=== PATIENT | male | born 1955 | race Caucasian/White ===

== ENCOUNTER 2017-05-06 19:54 | Emergency (ER) | payer OTHER ==
[~2017-05-06] VITALS: Ht 177.8 cm; Wt 132.0 kg
[2017-05-06 19:56] VITALS: Ht 177.8 cm; Wt 132.0 kg
--- NOTE | 2017-05-06 21:37 | ERD ---
ER Documentation Chief Complaint Date/Time DATE: 05/06/17 TIME: 21:35 Chief Complaint pt bib family with c/o back pain , hard to sleep, sit, stand HPI 61-year-old male who presents emergency department for nontraumatic back pain that happened 36-48 hours ago. Patient also stated that he has a chronic back pain since 2002 secondary to injury to his back. Denies headache, dizziness, blurred vision, neck pain, shoulder pain, chest pain , abdominal pain, nausea, vomiting, urinary symptoms, constipation, diarrhea, loss of bowel and bowel control, numbness or tingling sensation, trauma, injury , falls, fever, chills. No known drug allergies. Past medical history of adult and juvenile ADHD, chronic back pain. Surgical history of cholecystectomy 5 years ago. Medication : Stated that he takes Motrin at home. Social: Not working at this time. Smokes cigarettes occasionally. Occasional drinks alcoholic beverages. Patient admits that he occasionally uses speed. ROS All systems reviewed and are negative except as per history of present illness. Medications Home Meds Active Scripts Tramadol HCl (Tramadol HCl) 50 Mg Tablet, 50 MG PO Q4 Y for PAIN, #15 TAB Prov:ISABELAERICNGHIAAR F 05/06/17 Cyclobenzaprine Hcl* (Cyclobenzaprine Hcl*) 10 Mg Tablet, 10 MG PO Q12, #15 TAB Prov:DAVID VILLELA F 05/06/17 Allergies Allergies: Coded Allergies: No Known Allergy (Unverified , 05/06/17) Physical Exam Vitals Vital Signs Date Time Temp Pulse Resp B/P Pulse Ox O2 Delivery O2 Flow Rate FiO2 05/06/17 23:45 98.0 85 20 140/83 95 Room Air 05/06/17 19:56 98.0 94 20 155/88 97 Physical Exam Const: [] Head: Atraumatic Eyes: Normal Conjunctiva. Extraocular movement of his eyes within normal limits. No pain in eye movement. No visual field loss. ENT: Normal External Ears, Nose and Mouth. Neck: Full range of motion..~ No meningismus. Resp: Clear to auscultation bilaterally Cardio: Regular rate and rhythm, no murmurs Abd: Soft, non tender, non distended. Normal bowel sounds Skin: No petechiae or rashes Back: No midline or flank tenderness Ext: No cyanosis, or edema. Right straight leg test was positive.C-spine/T- spine/L-spine is good and full range of motion with no deformity/bulging/ discoloration/swelling. No signs of saddle anesthesia. Good and full range of motion of neck and spine. Bilateral great toe has strong flexion and extension with a score of 5/5. Neur: Awake and alert Psych: Normal Mood and Affect Results 24 hrs Laboratory Tests Test 05/06/17 21:50 Urine Color YELLOW Urine Clarity CLEAR Urine pH 5.0 Urine Specific [place] 1.023 Urine Ketones NEGATIVEmg/dL Urine Nitrite NEGATIVEmg/dL Urine Bilirubin NEGATIVEmg/dL Urine Urobilinogen NEGATIVEmg/dL Urine Leukocyte Esterase TRACELeu/ul Urine Microscopic RBC 2/HPF Urine Microscopic WBC 6/HPF Urine Calcium Oxalate Crystals FEW/HPF Urine Mucus FEW/HPF Urine Hemoglobin 1+mg/dL Urine Glucose NEGATIVEmg/dL Urine Total Protein NEGATIVEmg/dl Urine Opiates Screen Negative Urine Barbiturates Negative Urine Amphetamines Screen Positive Urine Benzodiazepines Screen Negative Urine Cocaine Screen Negative Urine Cannabinoids Negative Current Medications Medications (Trade) Dose Ordered Sig/Toan Route PRN Reason Start Time Stop Time Status Last Admin Dose Admin Acetaminophen/ Hydrocodone Bitart ([place] (10/325)) 1 tab ONCE ONCE PO 05/06/17 22:00 05/06/17 22:01 DC 05/06/17 21:59 Procedures/MDM Examination: Please see physical examination. Disease process, medical treatment was explained to the patient and family member. They verbalized understanding and agreed with the diagnostic tests, medical treatment, and follow-up care. EKG: Normal sinus rhythm with a ventricular rate of 90 bpm. No evidence of acute myocardial infarction. No evidence of ischemia. Urinalysis: Negative for UTI. Positive for amphetamines. Treatment: [place]. Re-evaluation: Denies headache, dizziness, blurry vision, neck pain, shoulder pain, chest pain, back pain, abdominal pain, nausea, vomiting. No episode of emesis in the emergency department. Alert and oriented 4. Speaks full and clear sentences. Respirations even and unlabored. Lung sounds clear to auscultation. Active bowel sounds. There is no right upper/right lower/ epigastric/left upper/left lower abdominal tenderness and light and deep palpation. Negative on Rovsings sign. Negative Tray sign. No peritoneal signs. Ambulatory.Walks with a walker. No neurovascular deficits. No neurological deficits. Consultation: None. Differential diagnosis: Acute myocardial infarction versus acute coronary syndrome versus abdominal aortic aneurysm versus otitis externa versus chronic back pain versus sciatica versus musculoskeletal spasms Medical decision m[age]-year-old male who presents emergency department for nontraumatic back pain that happened 36-48 hours ago. Patient also stated that he has a chronic back pain since 2002 secondary to injury to his back.Patient's complaint, patient's history about his complaint, my physical findings, my reevaluation are consistent my final diagnosis of chronic back pain, sciatica. Medications prescribed are the following: Flexeril. Patient and family member are made aware of the side effects and adverse reactions of the medications prescribed. Instructed on when to seek emergent and medical attention in case allergic/anaphylactic reactions or severe side effects and or adverse reactions to medications. Patient and family member verbalized understanding. Patient instructed Instructed to follow-up with his PCP in 24-48 hours. Instructed to Call 911 for chest pain, shortness of breath. Advised to come back here in ED as soon as possible for severity of symptoms which includes but not limited to: any new symptoms; shortness of breath/difficulty of breathing; cardiovascular changes; severe gastrointestinal symptoms; signs and symptoms of bleeding and or infection; signs of compartment syndrome/neurovascular changes; neurological changes/deficits. Patient and family member verbalized understanding. Upon discharge, patient is alert and oriented x 4, speaks full and clear sentences, denies pain, has no neurological deficits, has no neurovascular deficits, difficulty of breathing. Breathing even and unlabored. Lung sounds are clear to auscultation. Not in distress. Appears comfortable. Ambulatory with steady gait. Appears satisfied with care provided here in ED. Departure Diagnosis: Primary Impression: Back pain Additional Impressions: Sciatica Chronic back pain Condition: Stable Additional Instructions: Follow-up with PCP in the next 24-48 hours. Come back to emergency department for any new symptoms or any worsening of symptoms. Patient verbalized understanding and agreed with the plan of care. DAVID VILLELA May 06, 2017 21:37
[2017-05-06] MEDS ORDERED: HYDROCODONE/APAP (10/325) TAB PO ONE (22:00)
[2017-05-06 22:48] LABS: ADD UMIC YES; UR ASCORBIC ACID NEGATIVE (NEGATIVE); UR BILIRUBIN (Dip) NEGATIVE (NEGATIVE); UR BLOOD (Dip) 1+ mg/dL (NEGATIVE); UR CLARITY CLEAR (CLEAR); UR COLOR YELLOW (YELLOW); UR GLUCOSE (Dip) NEGATIVE (NEGATIVE); UR KETONES (Dip) NEGATIVE (NEGATIVE); UR LEUKOCYTE ESTERASE (Dip) TRACE Leu/ul (NEGATIVE); UR MUCUS FEW /HPF (NONE SEEN); UR NITRITE (Dip) NEGATIVE (NEGATIVE); UR RBC 2 /HPF (0-5); UR SPECIFIC GRAVITY (Dip) 1.023 (1.003-1.030); UR TOTAL PROTEIN (Dip) NEGATIVE (NEGATIVE); UR UROBILINOGEN (Dip) NEGATIVE (NEGATIVE)
[2017-05-06 22:58] LABS: BARBITURATES Negative (NEGATIVE); BENZODIAZEPINES Negative (NEGATIVE); CANNABINOIDS Negative (NEGATIVE); COCAINE Negative (NEGATIVE); OPIATES Negative (NEGATIVE)
[2017-05-06] MEDS ORDERED: CYCL-319 PO (23:07)
[2017-05-06] MEDS ORDERED: TRAM50TA2 PO (23:08)
[2017-05-06 23:45] VITALS: BP 140/83; PULSE 85; RESP 20; TEMP 98
== END 2017-05-06 23:45 | disposition home or self-care (01) ==
LOC: FTE 19:54
DX: M54.9 Dorsalgia, unspecified (principal); M54.31 Sciatica, right side
CPT/HCPCS: 80307; 81001; 93005; Z7502; Z7610